=== PATIENT | female | born 1965 | race Two or more races ===

== ENCOUNTER 2023-01-13 08:26 | Outpatient (CLI) | payer OTHER | END 2023-01-13 08:40 | disposition home or self-care (01) | LOC: RAD 08:26 | DX: R13.10 Dysphagia, unspecified (principal); J15.8 Pneumonia due to other specified bacteria; U07.1 COVID-19; N64.4 Mastodynia; Z12.31 Encounter for screening mammogram for malignant neoplasm of breast ==